=== PATIENT | female | born 1950 | race Caucasian/White ===

== ENCOUNTER 2017-03-31 10:46 | Observation (INO) ==
[2017-03-31] MEDS ORDERED: Aspirin 81 MG TAB.CHEW PO ONE (11:08)
--- NOTE | 2017-03-31 11:08 | Emergency Department Note ---
Disposition Clinical Impression: Hypertensive urgency Headache Qualifiers: Headache type: unspecified Headache chronicity pattern: acute headache Intractability: not intractable Qualified Code(s): R51 - Headache Disposition: Admitted As Inpatient Condition: Good Referrals: Lela Alex CNP [Primary Care Provider] - Time of Disposition: 17:19 General Adult HPI - General Chief complaint: ED General Medical Stated complaint: High B/P Time Seen by Provider: 03/31/17 10:55 Source: patient, family Limitations: no limitations Nursing Notes Reviewed: Yes Vital Signs Reviewed: Yes - History of Present Illness HPI Narrative: Patient complaining of hypertension. States she has history of hypertension and takes medication for this however is not been controlling it recently. She is concerned because she has a headache today. A shortness of breath or chest pain. Denies any change in her vision. Sates that her blood pressures been elevated for the past 3 days. Pain Scale: 8 - Related Data Home Medications Medication Instructions Recorded Confirmed Albuterol Neb [Proventil Neb] 2.5 mg IH Q4-6H PRN 03/31/17 03/31/17 Albuterol Sulfate [Ventolin Hfa] 2 puff IH Q4H PRN 03/31/17 03/31/17 Budesonide/Formoterol 160/4.5 2 puff IH BID 03/31/17 03/31/17 [Symbicort 160/4.5] Cetirizine HCl [Zyrtec] 10 mg PO DAILY 03/31/17 03/31/17 Ergocalciferol (VITAMIN D2) 800 unit PO DAILY 03/31/17 03/31/17 [Vitamin D] Esomeprazole Magnesium [Nexium] 40 mg PO DAILY 03/31/17 03/31/17 Lisinopril [Zestril] 20 mg PO DAILY 03/31/17 03/31/17 Montelukast [Singulair] 10 mg PO DAILY 03/31/17 03/31/17 Mv-Mn/FA/Vit K/Lycop/Lut/Coq10 1 tab PO DAILY 03/31/17 03/31/17 [Daily Multivitamin Capsule] Oxygen 2 l NS HS 03/31/17 03/31/17 Roflumilast [Daliresp] 500 mcg PO DAILY 03/31/17 03/31/17 Simvastatin [Zocor] 20 mg PO HS 03/31/17 03/31/17 Tiotropium [Spiriva] 1 puff IH DAILY 03/31/17 03/31/17 Allergies Allergy/AdvReac Type Severity Reaction Status Date / Time No Known Drug Allergies Allergy See Verified 03/31/17 14:13 Comments All systems ED: reviewed and negative except as stated. Constitutional: Denies: fever, chills Eyes: Denies: vision change ENT ED: Denies: congestion Cardiovascular: Denies: chest pain, palpitations, syncope Respiratory: Denies: cough, dyspnea Gastrointestinal: Denies: abdominal pain, nausea, vomiting, diarrhea Genitourinary: Denies: urgency, dysuria, frequency Musculoskeletal: Denies: back pain, neck pain Neurological: Reports: headache. Denies: weakness, numbness, paresthesias Past Medical History - Past Medical History Attestation: Yes The following information was validated with the patient. Source: patient Medical history: Reports: COPD, GERD, hypertension Psychiatric history: Reports: no psych history - Social History Smoking Status: Never smoker Smokeless Tobacco Status: No Alcohol use: Reports: none Drug use: Reports: none Physical Exam - General Limitations: no limitations General appearance: alert, in no apparent distress - Head Head exam: atraumatic, normocephalic, normal inspection - Eye Eye exam: Present: normal appearance, PERRL, EOMI - ENT ENT exam: normal exam, normal oropharynx, mucous membranes moist - Neck Neck exam: Present: normal inspection, full ROM, trachea midline - Chest Chest inspection: Present: normal inspection, symmetric chest wall rise - Respiratory Respiratory exam: Present: normal lung sounds bilaterally. Absent: respiratory distress, accessory muscle use - Cardiovascular Cardiovascular exam: Present: regular rate, normal rhythm, normal heart sounds - Abdominal Exam Abdominal exam: Present: soft, Non-Tender, normal bowel sounds. Absent: tenderness, distention, guarding, rebound, rigidity, organomegaly - Extremities Exam Extremities exam: Present: normal inspection, full ROM, normal capillary refill. Absent: tenderness, pedal edema - Back Exam Back exam: Present: normal inspection, full ROM. Absent: tenderness, CVA tenderness (R), CVA tenderness (L) - Neurological Exam Neurological exam: Present: alert, oriented X3 - Psychiatric Psychiatric exam: Present: normal affect, normal mood - Skin Skin exam: Present: warm, dry, intact, normal color. Absent: rash, cyanosis, diaphoresis Course Course Narrative: Pt with history of HTN complaining of HTN. Has been taking her medication as prescribed. States that she started having a headache this morning. Complains of pain behind her eyes. Denies Shortness of breath or chest pain. Denies any changes in her vision. Patient has a new LVH on her EKG. Cardiac workup has been negative thus far. She appears well resting in bed. She does not appear to be in any distress. She states she was just worried about her blood pressure being up associated with the headache. SHe is mentating appropriately. Pupils are equal and reactive to light. She has no focal neuro deficits. She denies any other problems. She denies shortness of breath or chest pain. She denies any abdominal pain nausea vomiting or diarrhea. We have given patient labetalol while here to help with her blood pressure. We will admit to the hospital for her new LVH. Vital Signs Temperature 98.6 F 03/31/17 10:49 Pulse Rate 105 03/31/17 10:49 Respiratory Rate 18 03/31/17 10:49 Blood Pressure 166/101 03/31/17 10:49 O2 Sat by Pulse Oximetry 96 03/31/17 10:49 Temperature 98.2 F 03/31/17 16:15 Pulse Rate 90 03/31/17 16:15 Respiratory Rate 22 03/31/17 16:30 Blood Pressure 176/82 03/31/17 16:15 O2 Sat by Pulse Oximetry 98 03/31/17 16:30 Oxygen Delivery Oxygen Delivery Room Air Medical Decision Making - Medical Records Medical records reviewed: Yes I reviewed the patient's medical records. - Lab Data Lab results reviewed: Yes I reviewed the patient's lab results. Result diagrams: 03/31/17 11:24 03/31/17 11:24 Lab Results 03/31/17 03/31/17 03/31/17 Range/Units 11:24 11:24 11:24 WBC 7.4 (4.3-11.1) K/mcL RBC 4.28 (3.82-4.97) M/mcL Hgb 10.6 L (11.5-15.4) g/dL Hct 34.7 L (35.3-44.9) % MCV 81.1 L (83.0-100.0) fL MCH 24.8 L (28.0-33.3) pg MCHC 30.5 L (31.6-35.5) g/dL RDW 15.4 H (11.5-14.5) % Plt Count 362 (140-400) K/mcL MPV 9.6 (9.4-12.4) fL Immature Gran % 0.1 (0-4) % Seg Neutrophils % 74.9 % Lymphocytes % 15.6 % Monocytes % 7.5 % Eosinophils % 1.5 % Basophils % 0.4 % Neutrophils # 5.6 (1.6-8.9) K/mcL Lymphocytes # 1.2 (0.6-4.6) K/mcL Monocytes # 0.6 (0.0-1.3) K/mcL Eosinophils # 0.1 (0.0-0.6) K/mcL Basophils # 0.0 (0.0-0.2) K/mcL PT 11.7 (9.4-12.1) Seconds INR 1.1 APTT 26.2 (26.0-36.0) Seconds Sodium (136-145) mEq/L Potassium (3.5-4.5) mEq/L Chloride (98-109) mEq/L Carbon Dioxide (19-29) mEq/L BUN (7-20) mg/dL Creatinine (0.57-1.11) mg/dL Est GFR ( Amer) (> 60) Est GFR (Non-Af Amer) (> 60) BUN/Creatinine Ratio (6-26) Glucose (70-99) mg/dL Calculated Osmolality (280-300) Calcium (8.6-10.8) mg/dL Total Bilirubin 0.3 (0.2-1.2) mg/dL Direct Bilirubin 0.2 (0.0-0.5) mg/dL Indirect Bilirubin 0.1 (0.0-1.2) mg/dL AST 21 (5-34) Units/L ALT 16 (0-55) Units/L Alkaline Phosphatase 91 (38-126) Units/L Troponin I (0-0.03) ng/mL Serum Total Protein 7.5 (6.0-8.3) g/dL Albumin 3.5 (3.5-5.0) g/dL Globulin 4.0 H (2.4-3.5) g/dL Albumin/Globulin Ratio 0.9 L (1.1-2.2) 03/31/17 03/31/17 Range/Units 11:24 11:24 WBC (4.3-11.1) K/mcL RBC (3.82-4.97) M/mcL Hgb (11.5-15.4) g/dL Hct (35.3-44.9) % MCV (83.0-100.0) fL MCH (28.0-33.3) pg MCHC (31.6-35.5) g/dL RDW (11.5-14.5) % Plt Count (140-400) K/mcL MPV (9.4-12.4) fL Immature Gran % (0-4) % Seg Neutrophils % % Lymphocytes % % Monocytes % % Eosinophils % % Basophils % % Neutrophils # (1.6-8.9) K/mcL Lymphocytes # (0.6-4.6) K/mcL Monocytes # (0.0-1.3) K/mcL Eosinophils # (0.0-0.6) K/mcL Basophils # (0.0-0.2) K/mcL PT (9.4-12.1) Seconds INR APTT (26.0-36.0) Seconds Sodium 143 (136-145) mEq/L Potassium 3.4 L (3.5-4.5) mEq/L Chloride 102 (98-109) mEq/L Carbon Dioxide 30 H (19-29) mEq/L BUN 11 (7-20) mg/dL Creatinine 0.83 (0.57-1.11) mg/dL Est GFR ( Amer) > 60 (> 60) Est GFR (Non-Af Amer) > 60 (> 60) BUN/Creatinine Ratio 13 (6-26) Glucose 183 H (70-99) mg/dL Calculated Osmolality 300 (280-300) Calcium 9.4 (8.6-10.8) mg/dL Total Bilirubin (0.2-1.2) mg/dL Direct Bilirubin (0.0-0.5) mg/dL Indirect Bilirubin (0.0-1.2) mg/dL AST (5-34) Units/L ALT (0-55) Units/L Alkaline Phosphatase (38-126) Units/L Troponin I 0.00 (0-0.03) ng/mL Serum Total Protein (6.0-8.3) g/dL Albumin (3.5-5.0) g/dL Globulin (2.4-3.5) g/dL Albumin/Globulin Ratio (1.1-2.2) - Radiology Data Radiology results reviewed: Yes I reviewed the patient's radiology results. Chest X-Ray 03/31/17 11:08 IMPRESSION: 1. No active pulmonary disease. D/ / Mario Tracey MD / Mario Tracey MD Interpreting Provider: Mario Tracey MD Head CT 03/31/17 11:29 IMPRESSION: No acute intracranial abnormality. D/ / 03/31/2017 12:07:01 Bouchra Ashley MD / [facility] Interpreting Provider: Bouchra Ashley MD - EKG Data EKG #1 EKG attestation: Yes I reviewed and interpreted this EKG. EKG results narrative: Sinus tachycardia at a rate of 106. ME interval is 160. QRS duration is 131. QT is 349. QTC is 411. Patient does have new left ventricular hypertrophy. There are no signs of acute ischemia. The hypertrophy is new from previous EKG dated 05/01/2013. Attestation Statement - Attestation Attestation: 58-year-old female with hypertensive emergency. She has new findings of left ventricular hypertrophy on EKG. She also has headache. CT scan of the head was performed to rule out acute stroke. This shows no intracranial abnormality. Additionally basic labs are obtained. Her creatinine is stable. We are pending urinalysis. Plan evaluate for ongoing hypertension in setting of LVH. Additionally we will continue to monitor blood pressure. She was given labetalol.
[2017-03-31 11:34] LABS: Basophils % 0.4 %; Eosinophils # 0.1 K/mcL (0.0-0.6); Eosinophils % 1.5 %; Hematocrit 34.7 % (35.3-44.9); Hemoglobin 10.6 g/dL (11.5-15.4); Immature Granulocytes % 0.1 % (0-4); Lymphocytes # 1.2 K/mcL (0.6-4.6); Lymphocytes % 15.6 %; Mean Corpuscular HGB Conc 30.5 g/dL (31.6-35.5); Mean Corpuscular Hemoglobin 24.8 pg (28.0-33.3); Mean Corpuscular Volume 81.1 fL (83.0-100.0); Mean Platelet Volume 9.6 fL (9.4-12.4); Monocytes # 0.6 K/mcL (0.0-1.3); Monocytes % 7.5 %; Neutrophils # 5.6 K/mcL (1.6-8.9); Platelet Count 362 K/mcL (140-400); Red Blood Count 4.28 M/mcL (3.82-4.97); Red Cell Distribution Width 15.4 % (11.5-14.5); Segmented Neutrophils % 74.9 %
[2017-03-31 11:42] LABS: INR 1.1; Prothrombin Time 11.7 Seconds (9.4-12.1)
[2017-03-31 11:45] LABS: Activated Partial Thrombo Time 26.2 Seconds (26.0-36.0)
[2017-03-31 11:47] LABS: BUN/Creatinine Ratio 13 (6-26); Blood Urea Nitrogen 11 mg/dL (7-20); Calcium 9.4 mg/dL (8.6-10.8); Carbon Dioxide 30 mEq/L (19-29); Chloride 102 mEq/L (98-109); Glucose 183 mg/dL (70-99); Osmolality,Calculated 300 (280-300); Potassium 3.4 mEq/L (3.5-4.5); Sodium 143 mEq/L (136-145); eGFR For African Americans > 60 (> 60); eGFR For Non-African Americans > 60 (> 60)
[2017-03-31 11:48] LABS: Albumin 3.5 g/dL (3.5-5.0); Albumin/Globulin Ratio 0.9 (1.1-2.2); Bilirubin,Direct 0.2 mg/dL (0.0-0.5); Bilirubin,Indirect 0.1 mg/dL (0.0-1.2); Bilirubin,Total 0.3 mg/dL (0.2-1.2); Total Protein 7.5 g/dL (6.0-8.3)
[2017-03-31] MEDS ORDERED: *HR* Labetalol 20 MG/4 ML SYRINGE IVP ONE (13:48)
[2017-03-31] MEDS ORDERED: Acetaminophen 325 MG TABLET PO PRN (15:49)
[2017-03-31] MEDS ORDERED: Naloxone 0.4 MG/ML INJ IVP PRN (15:49)
[2017-03-31] MEDS ORDERED: Albuterol 2.5 MG/3 ML NEBULIZER IH SCH (16:00)
[2017-03-31] MEDS ORDERED: Albuterol 2.5 MG/3 ML NEBULIZER IH PRN (16:09)
--- NOTE | 2017-03-31 16:17 | Internal Med History&Physical ---
<Mary Biggs M - Last Filed: 03/31/17 18:26> Date of Encounter: 03/31/17 Time of Encounter: 16:15 Assessment and Plan (1) Hypertensive urgency Current visit: Yes Status: Acute Patient presents with headache and blood pressure is elevated 160s-180s/90s- 100s. EKG revealed new LVH when compared to baseline EKG in 2013. Troponin was negative at 0.00. Patient given one time dose of labatalol. Hydralazine 10mg IVP Q6hr PRN for SBP > 160 or DBP > 100. Will add metoprolol 25mg PO BID. continuous ekg monitor. echocardiogram. (2) Headache Current visit: Yes Status: Acute Patient has had headache since yesterday, with pain behind eyes, likely secondary to elevated blood pressure. CT Head negative for any acute abnormality. tylenol PRN for headache. Qualifiers: Headache type: unspecified Headache chronicity pattern: acute headache Intractability: not intractable Qualified Code(s): R51 - Headache (3) Sleep apnea Current visit: Yes Status: Acute respiratory therapy consulted for CPAP Qualifiers: Sleep apnea type: obstructive Qualified Code(s): G47.33 - Obstructive sleep apnea (adult) (pediatric) (4) COPD (chronic obstructive pulmonary disease) Current visit: Yes Status: Acute Patient with COPD, wears oxygen at home PRN and at night. She is wheezing on exam, but denies any increased shortness of breath or coughing and reports occasional wheezing is her baseline. Continue home doses of medications. Add duoneb treatments QID and give albuterol nebulizer q2PRN instead of q4. Titrate oxygen to maintain saturation > 90%. Qualifiers: COPD type: unspecified COPD Qualified Code(s): J44.9 - Chronic obstructive pulmonary disease, unspecified (5) Type 2 diabetes mellitus Current visit: Yes Status: Acute check Hgb A1c. diabetic, heart healthy diet check blood sugars ACHS sliding scale correction dose ACHS hypoglycemic protocol. Qualifiers: Diabetes mellitus complication status: without complication Diabetes mellitus intermediate insulin use: without intermediate use Qualified Code(s): E11.9 - Type 2 diabetes mellitus without complications (6) DVT prophylaxis Current visit: Yes Status: Acute anti-embolic stockings lovenox SQ daily. Internal Medicine - H&P: HPI Chief complaint: headache, high blood pressure Admitted From: Emergency Dept Plans for Post Hospital Care: Home History of present illness: Ms. Vaca is a 66 year old female with hypertension, hyperlipidemia, COPD, sarcoidosis, presents to the emergency department today with complaints of headache and high blood pressure. Patient reports that she noticed at a doctor' s appointment earlier this week that her blood pressure was high on multiple checks. Yesterday she had a headache that lasted all day, and continued to today. She also had some blurred vision and pain behind her eyes. She denied any lightheadedness, chest pain, palpitations, increased shortness of breath or cough, nausea, vomiting, abdominal pain, fever, chills or sweats. Evaluation in the emergency department included an EKG shows sinus tachycardia new LVH from baseline EKG in 2012, no acute ischemic changes. Troponin was negative at 0.00. Chest x-ray showed no active pulmonary disease. Head CT showed no acute intracranial abnormality. On exam, patient alert and oriented, in no acute distress. Heart had regular rate and rhythm. Lungs had bilateral expiratory wheezes. No peripheral edema. Neurologically intact. Past Med Surg Social Fam HX - Past Medical History Medical history: COPD, GERD, hyperlipidemia, hypertension Psychiatric history: no psych history - Past Surgical History Surgical History: orthopedic, other - Social History Smoking Status: Never smoker Smokeless Tobacco Status: No Alcohol use: none Drug use: none - Family History Mother Living Status: Cause of : CVA Grandmother Living Status: Cause of : CVA Brother Living Status: Hx Family Cardiac Disorders: Yes (CAD) Internal Medicine - H&P: Meds Albuterol Neb [Proventil Neb] 2.5 mg IH Q4-6H PRN 03/31/17 [History] Albuterol Sulfate [Ventolin Hfa] 2 puff IH Q4H PRN 03/31/17 [History] Budesonide/Formoterol 160/4.5 [Symbicort 160/4.5] 2 puff IH BID 03/31/17 [ History] Cetirizine HCl [Zyrtec] 10 mg PO DAILY 03/31/17 [History] Ergocalciferol (VITAMIN D2) [Vitamin D] 800 unit PO DAILY 03/31/17 [History] Esomeprazole Magnesium [Nexium] 40 mg PO DAILY 03/31/17 [History] Lisinopril [Zestril] 20 mg PO DAILY 03/31/17 [History] Montelukast [Singulair] 10 mg PO DAILY 03/31/17 [History] Mv-Mn/FA/Vit K/Lycop/Lut/Coq10 [Daily Multivitamin Capsule] 1 tab PO DAILY 03/31 [History] Oxygen 2 l NS HS 03/31/17 [History] Roflumilast [Daliresp] 500 mcg PO DAILY 03/31/17 [History] Simvastatin [Zocor] 20 mg PO HS 03/31/17 [History] Tiotropium [Spiriva] 1 puff IH DAILY 03/31/17 [History] 3 Allergy/AdvReac Type Severity Reaction Status Date / Time No Known Drug Allergies Allergy See Verified 03/31/17 14:13 Comments All Systems PM: A 10-system review of systems was performed and is negative for pertinent findings except as documented above in the HPI. - Constitutional Constitutional: no chills, no fever(s), no night sweats - EENT Eyes: blurry vision, no change in vision, no discharge, no pain, no photophobia Ears: no ear discharge, no ear pain, no tinnitus Nose, mouth and throat: no dysphagia, no nasal discharge, no neck pain, no sore throat - Cardiovascular Cardiovascular ROS IM: no chest pain, no diaphoresis, no dyspnea, no lightheadedness, no palpitations, no syncope - Respiratory Respiratory: no cough, no dyspnea, no wheezing, no excessive phlegm production - Gastrointestinal Gastrointestinal: no abdominal pain, no diarrhea, no hematemesis, no hematochezia, no melena, no nausea, no vomiting - Genitourinary Genitourinary: no change in urinary stream, no dysuria, no flank pain, no hematuria - Musculoskeletal Musculoskeletal ROS IM: no numbness, no tingling - Integumentary Integumentary IM: no rash, no unusual bruising - Neurological Neurological ROS: headache(s), no confusion, no convulsions, no focal weakness, no numbness, no tingling, no tremor(s) - Hematologic/Lymphatic Hematologic/Lymphatic: no easy bruising - Constitutional Vitals: Temp Pulse Resp BP Pulse Ox 98.6 F 81 18 175/99 97 03/31/17 10:49 08/23/17 12:52 03/31/17 15:36 03/31/17 15:36 03/31/17 12:52 General appearance: Present: A&O X 3, pleasant, no acute distress - Head Head exam: Present: atraumatic, normocephalic - Eye Eye exam: Present: PERRL, conjuntiva pink, sclera anicteric Pupils: Present: PERRL - Neck Neck exam general surgery: Present: supple, trachea midline. Absent: lymphadenopathy - Respiratory Respiratory exam: Present: prolonged expiratory phase, wheezes. Absent: accessory muscle use, rales, rhonchi - Cardiovascular Cardiovascular exam: Present: RRR, +S1, +S2. Absent: diastolic murmur, gallop, rubs, systolic murmur - GI/Abdominal GI/Abdominal exam: Present: normal bowel sounds, soft, no peritoneal signs. Absent: distended, tenderness - Extremities Exam Extremities exam: Present: warm, radial pulses palpable and symmetrical. Absent : calf tenderness, cyanotic, pedal edema - Neurological Exam Neurological exam: Present: CN II-XII intact, oriented X3, no focal deficits. Absent: facial droop, speech deficit - Skin Skin exam: Present: dry, intact Internal Med - H&P Results - Labs CBC & Chem 7: 03/31/17 11:24 03/31/17 11:24 Labs: All Lab Results (24 Hours) 03/31/17 03/31/17 03/31/17 Range/Units 11:24 11:24 11:24 WBC 7.4 (4.3-11.1) K/mcL RBC 4.28 (3.82-4.97) M/mcL Hgb 10.6 L (11.5-15.4) g/dL Hct 34.7 L (35.3-44.9) % MCV 81.1 L (83.0-100.0) fL MCH 24.8 L (28.0-33.3) pg MCHC 30.5 L (31.6-35.5) g/dL RDW 15.4 H (11.5-14.5) % Plt Count 362 (140-400) K/mcL MPV 9.6 (9.4-12.4) fL Immature Gran % 0.1 (0-4) % Seg Neutrophils % 74.9 % Lymphocytes % 15.6 % Monocytes % 7.5 % Eosinophils % 1.5 % Basophils % 0.4 % Neutrophils # 5.6 (1.6-8.9) K/mcL Lymphocytes # 1.2 (0.6-4.6) K/mcL Monocytes # 0.6 (0.0-1.3) K/mcL Eosinophils # 0.1 (0.0-0.6) K/mcL Basophils # 0.0 (0.0-0.2) K/mcL PT 11.7 (9.4-12.1) Seconds INR 1.1 APTT 26.2 (26.0-36.0) Seconds Sodium (136-145) mEq/L Potassium (3.5-4.5) mEq/L Chloride (98-109) mEq/L Carbon Dioxide (19-29) mEq/L BUN (7-20) mg/dL Creatinine (0.57-1.11) mg/dL Est GFR ( Amer) (> 60) Est GFR (Non-Af Amer) (> 60) BUN/Creatinine Ratio (6-26) Glucose (70-99) mg/dL Calculated Osmolality (280-300) Calcium (8.6-10.8) mg/dL Total Bilirubin 0.3 (0.2-1.2) mg/dL Direct Bilirubin 0.2 (0.0-0.5) mg/dL Indirect Bilirubin 0.1 (0.0-1.2) mg/dL AST 21 (5-34) Units/L ALT 16 (0-55) Units/L Alkaline Phosphatase 91 (38-126) Units/L Troponin I (0-0.03) ng/mL Serum Total Protein 7.5 (6.0-8.3) g/dL Albumin 3.5 (3.5-5.0) g/dL Globulin 4.0 H (2.4-3.5) g/dL Albumin/Globulin Ratio 0.9 L (1.1-2.2) 03/31/17 03/31/17 Range/Units 11:24 11:24 WBC (4.3-11.1) K/mcL RBC (3.82-4.97) M/mcL Hgb (11.5-15.4) g/dL Hct (35.3-44.9) % MCV (83.0-100.0) fL MCH (28.0-33.3) pg MCHC (31.6-35.5) g/dL RDW (11.5-14.5) % Plt Count (140-400) K/mcL MPV (9.4-12.4) fL Immature Gran % (0-4) % Seg Neutrophils % % Lymphocytes % % Monocytes % % Eosinophils % % Basophils % % Neutrophils # (1.6-8.9) K/mcL Lymphocytes # (0.6-4.6) K/mcL Monocytes # (0.0-1.3) K/mcL Eosinophils # (0.0-0.6) K/mcL Basophils # (0.0-0.2) K/mcL PT (9.4-12.1) Seconds INR APTT (26.0-36.0) Seconds Sodium 143 (136-145) mEq/L Potassium 3.4 L (3.5-4.5) mEq/L Chloride 102 (98-109) mEq/L Carbon Dioxide 30 H (19-29) mEq/L BUN 11 (7-20) mg/dL Creatinine 0.83 (0.57-1.11) mg/dL Est GFR ( Amer) > 60 (> 60) Est GFR (Non-Af Amer) > 60 (> 60) BUN/Creatinine Ratio 13 (6-26) Glucose 183 H (70-99) mg/dL Calculated Osmolality 300 (280-300) Calcium 9.4 (8.6-10.8) mg/dL Total Bilirubin (0.2-1.2) mg/dL Direct Bilirubin (0.0-0.5) mg/dL Indirect Bilirubin (0.0-1.2) mg/dL AST (5-34) Units/L ALT (0-55) Units/L Alkaline Phosphatase (38-126) Units/L Troponin I 0.00 (0-0.03) ng/mL Serum Total Protein (6.0-8.3) g/dL Albumin (3.5-5.0) g/dL Globulin (2.4-3.5) g/dL Albumin/Globulin Ratio (1.1-2.2) - Diagnostic Studies Chest x-ray Additional comments: Chest X-Ray 03/31/17 11:08 IMPRESSION: 1. No active pulmonary disease. D/ / Mario Tracey MD / Mario Tracey MD Interpreting Provider: Mario Tracey MD CT scan - head Additional comments: Head CT 03/31/17 11:29 IMPRESSION: No acute intracranial abnormality. D/ / 03/31/2017 12:07:01 Bouchra Ashley MD / [facility] Interpreting Provider: Bouchra sAhley MD <Rody Avery - Last Filed: 03/31/17 19:01> Date of Encounter: 03/31/17 Internal Medicine - H&P: HPI History of present illness: Ms. Vaca is a 66 year old female All Systems PM: A 10-system review of systems was performed and is negative for pertinent findings except as documented above in the HPI. - Constitutional Vitals: Temp Pulse Resp BP Pulse Ox 98.2 F 100 17 154/81 98 03/31/17 16:15 03/31/17 17:56 03/31/17 17:56 03/31/17 18:50 03/31/17 16:30 Internal Med - H&P Results - Labs CBC & Chem 7: 03/31/17 11:24 03/31/17 11:24 - Attending Attestation Pt was independently seen and examined at bedside. Admitted for HTN urgency. Case was discussed with the GALLITO Biggs. I agree with her documented findings, assessment, and plan. Metoprolol 25mg PO BID added in addition to her home medications. Will continue to closely monitor her blood pressure.
[2017-03-31] MEDS: Ipratropium/Albuterol Neb 3 ML IH SCH ×2 (16:29→22:53)
[2017-03-31] MEDS ORDERED: *HR* Dextrose 50 % in Water (Syg) 50 ML SYRINGE IVP PRN (17:11)
[2017-03-31] MEDS ORDERED: D5% in Water 1,000 ML IVC PRN (17:11)
[2017-03-31] MEDS ORDERED: Dextrose Gel 15 GM PO PRN ×2 (17:11)
[2017-03-31 19:03] LABS: Hemoglobin A1C 6.9 %
[2017-03-31] MEDS: Insulin LISPRO 300 UNITS/3 ML VIAL SQ SCH (20:43)
[2017-03-31] MEDS: Budesonide/Formoterol 160/4.5 MDI IH SCH (22:53)
[2017-04-01] MEDS: Ipratropium/Albuterol Neb 3 ML IH SCH ×4 (05:03→22:40)
[2017-04-01] MEDS ORDERED: Ondansetron 4 MG/2 ML VIAL IVP PRN (05:18)
[2017-04-01] MEDS: *HR* Enoxaparin 40 MG/0.4 ML SYRINGE SQ SCH (05:58)
[2017-04-01 06:33] LABS: Basophils % 0.2 %; Eosinophils % 0.2 %; Hematocrit 36.1 % (35.3-44.9); Immature Granulocytes % 0.5 % (0-4); Lymphocytes # 0.8 K/mcL (0.6-4.6); Lymphocytes % 9.2 %; Mean Corpuscular HGB Conc 30.5 g/dL (31.6-35.5); Mean Corpuscular Hemoglobin 24.1 pg (28.0-33.3); Mean Platelet Volume 9.6 fL (9.4-12.4); Monocytes # 0.4 K/mcL (0.0-1.3); Monocytes % 5.1 %; Neutrophils # 6.9 K/mcL (1.6-8.9); Platelet Count 355 K/mcL (140-400); Red Blood Count 4.57 M/mcL (3.82-4.97); Red Cell Distribution Width 15.5 % (11.5-14.5); Segmented Neutrophils % 84.8 %
[2017-04-01 06:56] LABS: BUN/Creatinine Ratio 15 (6-26); Blood Urea Nitrogen 11 mg/dL (7-20); Calcium 9.4 mg/dL (8.6-10.8); Carbon Dioxide 24 mEq/L (19-29); Chloride 103 mEq/L (98-109); Glucose 190 mg/dL (70-99); Osmolality,Calculated 296 (280-300); Potassium 3.4 mEq/L (3.5-4.5); Sodium 141 mEq/L (136-145); eGFR For African Americans > 60 (> 60); eGFR For Non-African Americans > 60 (> 60)
[2017-04-01] MEDS ORDERED: Perflutren Lipid Microsphere 1.3 ML in 0.9 % Sodium Chloride 8.7 ML IVP ONE (08:48)
[2017-04-01] MEDS ORDERED: Lisinopril 20 MG TABLET PO SCH (09:00)
[2017-04-01] MEDS: Insulin LISPRO 300 UNITS/3 ML VIAL SQ SCH ×4 (10:14→20:24)
[2017-04-01] MEDS: Loratadine 10 MG TABLET PO SCH (10:14)
[2017-04-01] MEDS: (Roflumilast [Daliresp] 500 MCG) PO SCH (10:14)
[2017-04-01] MEDS: Budesonide/Formoterol 160/4.5 MDI IH SCH ×2 (11:30→22:40)
[2017-04-01] MEDS: Tiotropium 18 MCG inhalation IH SCH (11:31)
--- NOTE | 2017-04-01 16:57 | Internal Med Progress Note ---
Date of Encounter: 04/01/17 Time of Encounter: 15:30 - Assessment and plan (1) Headache Current Visit: Yes Status: Acute Assessment and plan: Patient stating she has had a headache for approximately one month. She was initially concerned that her lisinopril had changed in color and shape so she was concerned that maybe her insurance company gave her the wrong medication. However this occurred 2 weeks ago and she has had a headache for a month. Pharmacology Company likely changed manufacturers. She denies vision changes or gait difficulties. Chest x-ray negative. Head CT negative. Blood pressure improving. Echocardiogram with ejection fraction of 60% and mild LVH. Patient has never had her thyroid checked, we will check TSH with a.m. labs. ITS Impressions Chest X-Ray 03/31/17 11:08 IMPRESSION: 1. No active pulmonary disease. D/ / Mario Tracey MD / Mario Tracey MD Interpreting Provider: Mario Tracey MD Head CT 03/31/17 11:29 IMPRESSION: No acute intracranial abnormality. D/ / 03/31/2017 12:07:01 Bouchra Ashley MD / dianna Interpreting Provider: Bouchra Ashley MD Echo with Imaging Enhancement Agent Date of Study: 04/01/2017 Impressions: LVEF 60%. Mild concentric left ventricular hypertrophy with severe basal septal hypertrophy. Normal right ventricular size and function. No significant valvular dysfunction. Lack of significant TR signal to estimate RVSP. Qualifiers: Headache type: unspecified Headache chronicity pattern: acute headache Intractability: not intractable Qualified Code(s): R51 - Headache (2) Hypertensive urgency Current Visit: Yes Status: Acute Assessment and plan: At home, patient is on 20 mg of lisinopril daily. Metoprolol has been added to her regimen. Blood pressure is slowly improving. Her headache is also improving. We will continue to trend. We will try to avoid use of IV antihypertensives in preparation for possible discharge tomorrow pending clinical outcomes. (3) GERD (gastroesophageal reflux disease) Current Visit: Yes Status: Chronic Assessment and plan: Uncontrolled. Patient stating she is on 80 mg of Nexium at home however her home medications list have her only on 40 mg. She currently has an upset stomach and states that she cannot drink coffee because her stomach is "sour." We will try GI cocktail and monitor her response. She states she has a history of gastric ulcers- may also consider Carafate. (4) Sleep apnea Current Visit: Yes Status: Chronic Assessment and plan: Compliant with CPAP Qualifiers: Sleep apnea type: obstructive Qualified Code(s): G47.33 - Obstructive sleep apnea (adult) (pediatric) (5) COPD (chronic obstructive pulmonary disease) Current Visit: Yes Status: Chronic Assessment and plan: No acute exacerbation. Patient denies shortness of breath above her norm. She is currently tolerating room air. At home, she is on 2 L per nasal cannula as needed as well as CPAP at bedtime. Qualifiers: COPD type: unspecified COPD Qualified Code(s): J44.9 - Chronic obstructive pulmonary disease, unspecified (6) Chronic respiratory failure Current Visit: Yes Status: Chronic Assessment and plan: Currently tolerating room air. Uses 2 L per nasal cannula as needed at home as well as CPAP at bedtime. (7) Type 2 diabetes mellitus Current Visit: Yes Status: Chronic Assessment and plan: Controlled with an A1c of 6.9%. Continue sliding scale while admitted. Patient was scared that she may have to go on insulin shots, reassured at this time and hospital policy explained. (8) Morbid obesity with BMI of 40.0-44.9, adult Current Visit: Yes Status: Chronic (9) DVT prophylaxis Current Visit: Yes Status: Acute Assessment and plan: Subcutaneous Lovenox - Subjective Interval history: Patient seen and examined. On examination, patient sitting upright on the side of her bed. Patient alert and oriented 3 and currently states that her stomach is upset but she denies any vomiting. She states she had a cough earlier this morning but states her cough is gotten better throughout the day. She denies shortness of breath above her norm. - Constitutional Vitals: Temp Pulse Resp BP Pulse Ox 98.9 F 89 18 153/82 94 04/01/17 15:41 04/01/17 15:41 04/01/17 16:13 04/01/17 15:41 04/01/17 16:13 General appearance: Present: A&O X 3, pleasant, no acute distress, answers questions appropriately - Head Head exam: Present: atraumatic, normocephalic - Eye Eye exam: Present: PERRL, conjuntiva pink, sclera anicteric Pupils: Present: PERRL - Neck Neck exam general surgery: Present: supple, trachea midline. Absent: lymphadenopathy - Respiratory Respiratory exam: Present: decreased breath sounds. Absent: accessory muscle use, rales, respiratory distress, rhonchi, wheezes - Cardiovascular Cardiovascular exam: Present: RRR, +S1, +S2. Absent: diastolic murmur, gallop, rubs, systolic murmur - GI/Abdominal GI/Abdominal exam: Present: normal bowel sounds, soft, no peritoneal signs. Absent: distended, tenderness - Extremities Exam Extremities exam: Present: warm, radial pulses palpable and symmetrical. Absent : calf tenderness, cyanotic, pedal edema - Neurological Exam Neurological exam: Present: alert, CN II-XII intact, normal gait, oriented X3, no focal deficits, strengths equal and symetr throughout. Absent: pronater drift, facial droop, speech deficit - Skin Skin exam: Present: dry, intact, normal color, warm Internal Medicine: Result - Labs CBC & Chem 7: 04/01/17 06:24 04/01/17 06:24 Labs: Short CBC 04/01/17 Range/Units 06:24 WBC 8.2 (4.3-11.1) K/mcL Hgb 11.0 L (11.5-15.4) g/dL Hct 36.1 (35.3-44.9) % Plt Count 355 (140-400) K/mcL Neutrophils # 6.9 (1.6-8.9) K/mcL BMP 04/01/17 06:24 Sodium 141 Potassium 3.4 L Chloride 103 Carbon Dioxide 24 BUN 11 Creatinine 0.75 Glucose 190 H Calcium 9.4 - ABG Interpretation ABG results: PT/INR, D-dimer PT 11.7 Seconds (9.4-12.1) 03/31/17 11:24 Consult Discharge Plan - Plan Referrals: Lela Alex, [facility] [Primary Care Provider] -
[2017-04-01] MEDS ORDERED: *HR* HYDROcodone/Acet 5/325 mg TABLET PO PRN (17:04)
[2017-04-01] MEDS ORDERED: *HR* Morphine 2 MG/ML SYRINGE IVP PRN (17:04)
[2017-04-01] MEDS ORDERED: GI Cocktail 40 ML EACH PO ONE (17:04)
--- NOTE | 2017-04-01 18:11 | Electrocardiograph Report ---
[address] [address] Test Date: 2017-03-31 Pat Name: Krysta Vaca Department: 104 Room: 3B39 Gender: F Paleologist: SHERWIN : 1950 Requested By: Humera Caputo Order Number: [id number] Reading MD: Ana Oropeza Measurements Intervals [place] Rate: 106 P: 63 PA: 160 QRS: -26 QRSD: 131 T: 46 QT: 349 QTc: 411 Interpretive Statements SINUS TACHYCARDIA WITH OCCASIONAL VENTRICULAR PREMATURE COMPLEXES INTRAVENTRICULAR CONDUCTION DELAY LEFT ANTERIOR FASCICULAR BLOCK MODERATE VOLTAGE CRITERIA FOR LVH, CONSIDER NORMAL VARIANT Electronically Signed On 04-01-2017 18:10:00 EDT by Ana Oropeza
[2017-04-02] MEDS: Ipratropium/Albuterol Neb 3 ML IH SCH ×3 (04:08→11:22)
[2017-04-02] MEDS: *HR* Enoxaparin 40 MG/0.4 ML SYRINGE SQ SCH (05:51)
[2017-04-02] MEDS ORDERED: Lisinopril 20 MG TABLET PO SCH (08:40)
[2017-04-02] MEDS: Insulin LISPRO 300 UNITS/3 ML VIAL SQ SCH ×2 (08:50→12:02)
[2017-04-02] MEDS: (Roflumilast [Daliresp] 500 MCG) PO SCH (08:50)
[2017-04-02] MEDS: Loratadine 10 MG TABLET PO SCH (08:50)
[2017-04-02] MEDS: Tiotropium 18 MCG inhalation IH SCH (10:44)
[2017-04-02] MEDS: Budesonide/Formoterol 160/4.5 MDI IH SCH (11:18)
[2017-04-02 11:38] VITALS: BP 128/79
--- NOTE | 2017-04-02 14:05 | Discharge Summary ---
Date of Encounter: 04/02/17 Time of Encounter: 13:00 - Discharge Diagnosis (1) Headache Priority: Primary Status: Resolved Qualifiers: Headache type: unspecified Headache chronicity pattern: acute headache Intractability: not intractable Qualified Code(s): R51 - Headache (2) Hypertensive urgency Priority: Primary Status: Resolved (3) GERD (gastroesophageal reflux disease) Priority: Secondary Status: Chronic Comments: Uncontrolled. Patient stating she is on 80 mg of Nexium at home however her home medications list have her only on 40 mg. She had an upset stomach yesterday that was abated with a GI cocktail. Recommend outpatient follow-up (4) Sleep apnea Priority: Secondary Status: Chronic Comments: Compliant with CPAP Qualifiers: Sleep apnea type: obstructive Qualified Code(s): G47.33 - Obstructive sleep apnea (adult) (pediatric) (5) COPD (chronic obstructive pulmonary disease) Priority: Secondary Status: Chronic Comments: No acute exacerbation. Patient denied shortness of breath above her norm and tolerated room air while admitted. Qualifiers: COPD type: unspecified COPD Qualified Code(s): J44.9 - Chronic obstructive pulmonary disease, unspecified (6) Chronic respiratory failure Priority: Secondary Status: Chronic Comments: On 2 L per nasal cannula as needed at home as well as CPAP at bedtime. On room air during this admission. (7) Type 2 diabetes mellitus Priority: Secondary Status: Chronic Comments: Controlled with an A1c of 6.9%. Follow-up outpatient. (8) Morbid obesity with BMI of 40.0-44.9, adult Priority: Secondary Status: Chronic (9) DVT prophylaxis Priority: Primary Status: Acute Comments: Subcutaneous Lovenox while admitted. - Discharge Medications Prescriptions: Lisinopril [Zestril] 40 mg PO DAILY #30 tablet Metoprolol [Lopressor] 25 mg PO BID #60 tab Home Medications: Albuterol Neb [Proventil Neb] 2.5 mg IH Q4-6H PRN 03/31/17 [History] Albuterol Sulfate [Ventolin Hfa] 2 puff IH Q4H PRN 03/31/17 [History] Budesonide/Formoterol 160/4.5 [Symbicort 160/4.5] 2 puff IH BID 03/31/17 [ History] Cetirizine HCl [Zyrtec] 10 mg PO DAILY 03/31/17 [History] Ergocalciferol (VITAMIN D2) [Vitamin D] 800 unit PO DAILY 03/31/17 [History] Esomeprazole Magnesium [Nexium] 40 mg PO DAILY 03/31/17 [History] Montelukast [Singulair] 10 mg PO DAILY 03/31/17 [History] Mv-Mn/FA/Vit K/Lycop/Lut/Coq10 [Daily Multivitamin Capsule] 1 tab PO DAILY 03/31 [History] Oxygen 2 l NS HS 03/31/17 [History] Roflumilast [Daliresp] 500 mcg PO DAILY 03/31/17 [History] Simvastatin [Zocor] 20 mg PO HS 03/31/17 [History] Tiotropium [Spiriva] 1 puff IH DAILY 03/31/17 [History] Lisinopril [Zestril] 40 mg PO DAILY #30 tablet 04/02/17 [Rx] Metoprolol [Lopressor] 25 mg PO BID #60 tab 04/02/17 [Rx] Allergies/Adverse Reactions: 3 Allergy/AdvReac Type Severity Reaction Status Date / Time No Known Drug Allergies Allergy See Verified 03/31/17 14:13 Comments Procedures/tests Complete & Pending: Procedures Performed prior 72 hours Category Date Time Status EV echocardiogram w enhance Routine Y 04/01/17 16:16 Completed Date of admission: 03/31/17 15:19 Primary care physician: Lela Alex CNP Consults: 03/31/17 16:30 Consult to Mailer Apprentice [CONS] Routine Reason for SW Consult: POA, living will papers Discharging clinician: Jane Knowles Anticipated date of discharge: 04/02/17 - Patient Status Disposition: Home, Self-Care Condition: Good Functional capacity at discharge: independent ambulation Overall status at discharge: patient is back to baseline - Discharge Instructions Follow Up With: Lela Alex CNP [Primary Care Provider] - Additional Instructions: Follow-up with primary care provider within one to 2 weeks, check blood pressure daily and keep a log - Diet and Activity Activity: increase activity as tolerated Diet: diabetic diet, low fat, low cholesterol, low salt diet Hospital course: Ms. Vaca is a 66 year old female with past medical history of COPD on 2 L as needed at home, sleep apnea on CPAP, GERD, hyperlipidemia, hypertension, never smoker, sarcoidosis. Patient presented to the emergency department chief complaint of headache and elevated blood pressure. Patient stating she noticed at her doctor's appointment earlier on the week prior to presentation at her blood pressure was high. She states the day prior to presentation, her headache lasted all day and had continued until the next day prompting her presentation to the emergency department. Patient also endorsed some blurred vision and pain behind her eyes. She denies lightheadedness, chest pain, palpitations, increased shortness of breath or cough, abdominal pain. Workup in the emergency department revealing EKG with sinus tach with new LVH when compared to prior EKGs without acute changes. Chest x-ray negative. Head CT negative. Patient was admitted to the hospitalist service for further evaluation and management. She was started on metoprolol and she remained hypertensive several lisinopril dosage from home was increased. At that point, she became normotensive and her headache had resolved. She was ambulatory without difficulties and she has no vision changes on day of discharge. Echocardiogram was performed which revealed an ejection fraction of 60% and mild LVH. TSH normal. She was discharged home in stable condition with close outpatient follow-up recommended. ITS Impressions Chest X-Ray 03/31/17 11:08 IMPRESSION: 1. No active pulmonary disease. D/ / Mario Tracey MD / Mario Tracey MD Interpreting Provider: Mario Tracey MD Head CT 03/31/17 11:29 IMPRESSION: No acute intracranial abnormality. D/ / 03/31/2017 12:07:01 Bouchra Ashley MD / [facility] Interpreting Provider: Bouchra Ashley MD Echo with Imaging Enhancement Agent Date of Study: 04/01/2017 Impressions: LVEF 60%. Mild concentric left ventricular hypertrophy with severe basal septal hypertrophy. Normal right ventricular size and function. No significant valvular dysfunction. Lack of significant TR signal to estimate RVSP. - Time Spent with Patient Total time spent providing and/or coordinating discharge services: - Constitutional Vitals: Temp Pulse Resp BP Pulse Ox 98 F 86 15 128/79 94 04/02/17 11:37 04/02/17 11:37 04/02/17 11:37 04/02/17 11:37 04/02/17 11:37 General appearance: Present: A&O X 3, morbidly obese, pleasant, no acute distress, answers questions appropriately - Head Head exam: Present: atraumatic, normocephalic - Eye Eye exam: Present: PERRL, conjuntiva pink, sclera anicteric Pupils: Present: PERRL - Neck Neck exam general surgery: Present: supple, trachea midline. Absent: lymphadenopathy - Respiratory Respiratory exam: Present: CTAB. Absent: accessory muscle use, rales, respiratory distress, rhonchi, wheezes - Cardiovascular Cardiovascular exam: Present: RRR, +S1, +S2. Absent: diastolic murmur, gallop, rubs, systolic murmur - GI/Abdominal GI/Abdominal exam: Present: normal bowel sounds, soft, no peritoneal signs. Absent: distended, tenderness - Extremities Exam Extremities exam: Present: warm, radial pulses palpable and symmetrical. Absent : calf tenderness, cyanotic, pedal edema - Neurological Exam Neurological exam: Present: alert, CN II-XII intact, normal gait, oriented X3, no focal deficits, strengths equal and symetr throughout. Absent: pronater drift, facial droop, speech deficit - Skin Skin exam: Present: dry, intact, normal color, warm
== END 2017-04-02 15:23 | disposition home or self-care (01) ==
LOC: EMEROO 10:46 → 3BNU 10:46
PROVIDERS: ADMIT Internal Medicine; ATTEND Nurse Practitioner Family